=== PATIENT | male | born 1950 | race Caucasian/White ===

== ENCOUNTER 2017-02-06 11:08 | Outpatient (CLI) | payer BC, OTHER | END 2017-02-06 11:09 | disposition home or self-care (01) | LOC: SC 11:08 | PROVIDERS: ATTEND Internal Medicine Pulmonary Disease | DX: G47.10 Hypersomnia, unspecified (principal); R06.83 Snoring | CPT/HCPCS: 99203; 99212 ==

== ENCOUNTER 2017-04-11 09:10 | Outpatient (CLI) | payer BC | END 2017-04-11 09:11 | disposition home or self-care (01) | LOC: SC 09:10 | PROVIDERS: ATTEND Nurse Practitioner Family | DX: G47.33 Obstructive sleep apnea (adult) (pediatric) (principal) | CPT/HCPCS: 99212; 99214 ==